=== PATIENT | female | born 1990 | race Caucasian/White ===

== ENCOUNTER 2020-07-09 08:35 | Inpatient (IN) ==
[~2020-07-09 08:35] MED LIST: Famotidine 20 MG/2 ML VIAL IVP PRN; Metoclopramide 10 MG/2 ML VIAL IVP PRN; Naloxone 0.4 MG/ML INJ IVP PRN; Ringers Solution, Lactated 1,000 ML ONE
[2020-07-09] MEDS ORDERED: Oxytocin 20 units/ LR 1000 mL 20 UNIT/1,000 ML BAG IVC ONE ×2 (08:43→11:56)
[2020-07-09] MEDS ORDERED: *HR* Nalbuphine 10 MG/ML AMPUL IV PRN (09:02)
[2020-07-09 09:03] LABS: Basophils % 0.1 %; Eosinophils % 0.1 %; Hematocrit 33.7 % (35.3-44.9); Hemoglobin 11.7 g/dL (11.5-15.4); Immature Granulocytes % 0.3 % (0-4); Lymphocytes # 1.1 K/mcL (0.6-4.6); Lymphocytes % 7.4 %; Mean Corpuscular HGB Conc 34.7 g/dL (31.6-35.5); Mean Corpuscular Volume 89.2 fL (83.0-100.0); Mean Platelet Volume 9.6 fL (9.4-12.4); Monocytes # 0.9 K/mcL (0.0-1.3); Monocytes % 6.4 %; Neutrophils # 12.4 K/mcL (1.6-8.9); Platelet Count 211 K/mcL (140-400); Red Blood Count 3.78 M/mcL (3.82-4.97); Red Cell Distribution Width 12.5 % (11.5-14.5); Segmented Neutrophils % 85.7 %; White Blood Count 14.5 K/mcL (4.3-11.1)
[2020-07-09] MEDS ORDERED: *HR* FentaNYL (PF) 100 MCG/2 ML VIAL EP ONE (09:05)
[2020-07-09] MEDS ORDERED: Ropivacaine/PF 0.2% 20 ML VIAL EP ONE (09:05)
[2020-07-09] MEDS ORDERED: EPHEDrine 50 MG/ML VIAL IVP PRN (09:05)
[2020-07-09 09:10] LABS: Amphetamine Screen,Urine Negative ng/mL (Cutoff=1000); Barbiturate Screen,Urine Negative ng/mL (Cutoff=200); Benzodiazepines Screen,Urine Negative ng/mL (Cutoff=200); Cannabinoid Screen,Urine Negative ng/mL (Cutoff = 50); Cocaine Screen,Urine Negative ng/mL (Cutoff= 300); Opiate Screen,Urine Negative ng/mL (Cutoff=300); Phencyclidine Screen,Urine Negative ng/mL (Cutoff=25)
[2020-07-09] MEDS ORDERED: Epidural Premix (fent/bupiv) 110 ML EP SCH (09:15)
[2020-07-09] MEDS: Ringers Solution, Lactated 1,000 ML IVC SCH ×3 (09:16→10:58)
[2020-07-09] MEDS ORDERED: *HR* Morphine Sulfate/PF 10 MG/10 ML AMPUL ONE (11:27)
[2020-07-09] MEDS ORDERED: Ondansetron 4 MG/2 ML VIAL ONE ×2 (11:27→11:28)
[2020-07-09] MEDS ORDERED: Dexamethasone 4 MG/ML VIAL ONE ×2 (11:27→11:28)
[2020-07-09] MEDS ORDERED: Ketorolac 30 MG/ML VIAL ONE (11:28)
[2020-07-09] MEDS ORDERED: Lidocaine/EPI 1:200k 2% PF 20 ML VIAL ONE (11:33)
[2020-07-09] MEDS ORDERED: *HR* OxyCODONE Immed Rel 5 MG TABLET PO PRN (11:53)
[2020-07-09] MEDS ORDERED: Ondansetron 4 MG/2 ML VIAL IVP PRN ×2 (11:53→15:16)
[2020-07-09] MEDS ORDERED: *HR* HYDROmorphone PF 0.5 MG/0.5 ML SYRINGE IVP PRN (11:53)
[2020-07-09 11:55] LABS: Adenovirus Not Detected (Not Detect); Bordetella Pertussis Not Detected (Not Detect); Chlamydophila pneumoniae Not Detected (Not Detect); Coronavirus 229E Not Detected (Not Detect); Coronavirus HKU1 Not Detected (Not Detect); Coronavirus NL63 Not Detected (Not Detect); Coronavirus OC43 Not Detected (Not Detect); Human Metapneumovirus Not Detected (Not Detect); Human Rhinovirus/Enterovirus Not Detected (Not Detect); Influenza A Subtype 2009 H1 Not Detected (Not Detect); Influenza B Not Detected (Not Detect); Mycoplasma pneumoniae Not Detected (Not Detect); Parainfluenza Virus 1 Not Detected (Not Detect); Parainfluenza Virus 2 Not Detected (Not Detect); Parainfluenza Virus 3 Not Detected (Not Detect); Parainfluenza Virus 4 Not Detected (Not Detect); Respiratory Syncytial Virus Not Detected (Not Detect); SARS-CoV-2 Not Detected (Not Detect)
[2020-07-09] MEDS ORDERED: Acetaminophen IV 1,000 MG/100 ML BAG IVPB ONE (12:09)
[2020-07-09] MEDS ORDERED: Rho Immune Globulin 1,500 UNIT SYRINGE IM ONE (15:16)
[2020-07-09] MEDS ORDERED: Sennosides 8.6 MG TABLET PO PRN (15:16)
[2020-07-09] MEDS ORDERED: Metoclopramide 10 MG/2 ML VIAL IVP PRN (15:16)
[2020-07-09] MEDS: *HR* OxyCODONE/APAP 5/325 TABLET PO PRN (15:45)
[2020-07-09] MEDS: Ketorolac 30 MG/ML VIAL IVP SCH ×2 (18:06→20:08)
[2020-07-09] MEDS: Simethicone 80 MG TAB.CHEW PO SCH (19:57)
[2020-07-09] MEDS: metroNIDAZOLE 500 MG TABLET PO SCH (19:57)
[2020-07-09] MEDS: cephALEXin 500 MG CAPSULE PO SCH (19:57)
[2020-07-09] MEDS: Oxytocin 20 units/ LR 1000 mL 20 UNIT/1,000 ML BAG IVC SCH (19:57)
[2020-07-09] MEDS: Acetaminophen 325 MG TABLET PO SCH (19:58)
[2020-07-09] MEDS ORDERED: Ringers Solution, Lactated 1,000 ML IVC ONE (23:34)
[2020-07-10] MEDS: Ketorolac 30 MG/ML VIAL IVP SCH (00:37)
[2020-07-10] MEDS: Acetaminophen 325 MG TABLET PO SCH ×3 (00:37→19:52)
[2020-07-10] MEDS: Oxytocin 20 units/ LR 1000 mL 20 UNIT/1,000 ML BAG IVC SCH (05:44)
[2020-07-10 06:32] LABS: Basophils % 0.2 %; Eosinophils % 0.2 %; Hematocrit 28.3 % (35.3-44.9); Hemoglobin 9.7 g/dL (11.5-15.4); Immature Granulocytes % 0.4 % (0-4); Lymphocytes # 1.3 K/mcL (0.6-4.6); Mean Corpuscular HGB Conc 34.3 g/dL (31.6-35.5); Mean Corpuscular Hemoglobin 31.2 pg (28.0-33.3); Mean Platelet Volume 9.9 fL (9.4-12.4); Monocytes # 0.8 K/mcL (0.0-1.3); Monocytes % 5.2 %; Neutrophils # 12.6 K/mcL (1.6-8.9); Platelet Count 175 K/mcL (140-400); Red Blood Count 3.11 M/mcL (3.82-4.97); Red Cell Distribution Width 12.9 % (11.5-14.5); White Blood Count 14.8 K/mcL (4.3-11.1)
[2020-07-10] MEDS: metroNIDAZOLE 500 MG TABLET PO SCH ×3 (07:37→19:53)
[2020-07-10] MEDS: Prenatal Vit/FA 1 EACH TABLET PO SCH (07:38)
[2020-07-10] MEDS: cephALEXin 500 MG CAPSULE PO SCH ×3 (07:38→19:52)
[2020-07-10] MEDS: Simethicone 80 MG TAB.CHEW PO SCH ×2 (07:38→19:52)
[2020-07-10] MEDS: *HR* OxyCODONE/APAP 5/325 TABLET PO PRN ×2 (07:40→18:02)
[2020-07-10] MEDS: Ibuprofen 600 MG TABLET PO SCH ×2 (07:40→15:31)
[2020-07-10] MEDS ORDERED: Rho Immune Globulin 1,500 UNIT SYRINGE IM ONE (23:00)
[2020-07-11] MEDS: Ibuprofen 600 MG TABLET PO SCH (06:28)
[2020-07-11] MEDS: Acetaminophen 325 MG TABLET PO SCH (06:28)
[2020-07-11 07:55] VITALS: BP 117/71
[2020-07-11] MEDS: *HR* OxyCODONE/APAP 5/325 TABLET PO PRN (08:32)
[2020-07-11] MEDS: metroNIDAZOLE 500 MG TABLET PO SCH (08:33)
[2020-07-11] MEDS: Prenatal Vit/FA 1 EACH TABLET PO SCH (08:33)
[2020-07-11] MEDS: cephALEXin 500 MG CAPSULE PO SCH (08:34)
== END 2020-07-11 12:25 | disposition home or self-care (01) | DRG 788 ==
LOC: 1NENULAB → 1NENUOBS 14:54
PROVIDERS: ADMIT Obstetrics & Gynecology; ATTEND Obstetrics & Gynecology